=== PATIENT | female | born 1995 | race Caucasian/White ===

== ENCOUNTER → 2018-06-13 | Day surgery (SDC) | payer OTHER ==
[~2018-06-13] MED LIST: FENTANYL CITRATE/PF 100MCG/2 ML INJ ONE; METOCLOPRAMIDE HCL 10 MG/2ML VIAL ONE; MIDAZOLAM HCL 5 MG/ML VIAL ONE; PRILOSEC OTC20 MG PO; PROPOFOL IV EMULSION 10 MG/ML 20 ML VIAL ONE
--- OUTSIDE RECORDS SUMMARY | 2018-06-13 12:04 | XMS REPORT ---
Author Author [facility] Address Unknown Phone Unavailable Care Team Providers Care Group Care Worker Name Role Phone Unavailable Unavailable Problems This patient has no known problems. Allergies, Adverse Reactions, Alerts This patient has no known allergies or adverse reactions. Medications This patient has no known medications.
[2018-06-13 15:25] VITALS: BP 93/57
--- NOTE | 2018-06-13 15:33 | Operative Report ---
DATE OF PROCEDURE: June 13, 2018 PROCEDURE PERFORMED: Esophagogastroduodenoscopy with biopsies. INDICATIONS FOR EGD: Heartburn, indigestion, nausea, and vomiting. MEDICATION: Patient was done under MAC. Please see anesthesiologist's note. PROCEDURE: With the patient in the left lateral decubitus position, the flexible fiberoptic Olympus gastroscope was introduced into the esophagus under direct visualization without any difficulty. There was some patchy erythema noted in the distal esophagus. The scope was then advanced with ease into the stomach traversing a small sliding hiatal hernia. Mucosa overlying the antrum and the body revealed some patchy erythema and low-grade edema, and biopsies were obtained and sent to stain for H. pylori. The pylorus was of normal contour and shape. It was intubated with ease. The scope was advanced all the way to the 2nd portion of the duodenum. The scope was then withdrawn slowly. Mucosa overlying the proximal 2nd portion and the duodenal bulb grossly appeared to be within normal limits. Biopsies were obtained from the proximal 2nd portion to rule out sprue. The scope was then withdrawn back into the stomach and retroflexed. The mucosa overlying the fundus and the cardia appeared to be within normal limits. The scope was then straightened out. The stomach was decompressed. The scope was subsequently withdrawn. Patient tolerated the procedure well. IMPRESSION 1. Distal esophagitis, mild. 2. Small sliding hiatal hernia. 3. Gastritis, biopsied. Biopsies sent to stain for Helicobacter pylori. 4. Rule out sprue. PLAN: Follow up histology. Initiate Protonix 40 mg 1 p.o. q.a.m. a.c. Job#: [id number] [place]
== END | disposition home or self-care (01) ==
LOC: OR 12:02 → EDSEX 12:02
PROVIDERS: ATTEND Internal Medicine Gastroenterology
DX: K29.50 Unspecified chronic gastritis without bleeding (principal); K21.0 Gastro-esophageal reflux disease with esophagitis; K44.9 Diaphragmatic hernia without obstruction or gangrene; R12 Heartburn; R14.2 Eructation; F41.9 Anxiety disorder, unspecified
CPT/HCPCS: 43239; 81025; J2250; J2704; J2765

== ENCOUNTER → 2018-08-04 | Day surgery (SDC) | payer OTHER ==
[~2018-08-04] MED LIST changes: +HYOSCYAMINE SULFATE 0.5 MG/ML INJ ONE; -METOCLOPRAMIDE HCL 10 MG/2ML VIAL ONE; +MIDAZOLAM HCL 2 MG/2 ML VIAL ONE; -MIDAZOLAM HCL 5 MG/ML VIAL ONE; -PROPOFOL IV EMULSION 10 MG/ML 20 ML VIAL ONE; +PROPOFOL IV EMULSION 10 MG/ML 50 ML VIAL ONE; +ZYRTEC10 MG PO
--- OUTSIDE RECORDS SUMMARY | 2018-08-04 12:02 | XMS REPORT | Continuity of Care Document ---
Author Author [facility] Address Unknown Phone Unavailable Problems Problem Status Onset Date Classification Date Reported Comments Source Acute urinary tract infection 07/09/2018 Diagnosis 07/09/2018 [facility] Medications Medication Details Route Status Patient Instructions Ordering Provider Order Date Source NITROFURANTOIN, MACROCRYSTALS 25 MG / Nitrofurantoin, Monohydrate 75 MG Oral Capsule [Macrobid] Macrobid 100 mg capsule Take 1 capsule every 12 hours by oral route as directed for 5 days. Active [facility] Ondansetron 4 MG Disintegrating Oral Tablet ondansetron 4 mg disintegrating tablet Active [facility] pantoprazole 40 MG Delayed Release Oral Tablet pantoprazole 40 mg tablet,delayed release Active [facility] Prilosec Prilosec Active [facility] Hydrocortisone 25 MG/ML Topical Cream [Proctozone HC] Proctozone- HC 2.5 % topical cream perineal applicator Active [facility] Triamcinolone Acetonide 0.25 MG/ML Topical Cream triamcinolone acetonide 0.025 % topical cream Active [facility] Allergies, Adverse Reactions, Alerts Substance Category Reaction Severity Reaction type Status Date Reported Comments Source Immunizations Immunization Date Given Site Status Last Updated Comments Source Results Order Name Results Value Reference Range Date Interpretation Comments Source Urinalysis macro (dipstick) panel - Urine COLOR : Yellow 07/09/2018 [facility] Urinalysis macro (dipstick) panel - Urine CLARITY : Cloudy 07/09/2018 [facility] Urinalysis macro (dipstick) panel - Urine LEUKOCYTES : Moderate 07/09/2018 [facility] Urinalysis macro (dipstick) panel - Urine NITRITES : Negative 07/09/2018 [facility] Urinalysis macro (dipstick) panel - Urine UROBILINOGEN : Normal 07/09/2018 [facility] Urinalysis macro (dipstick) panel - Urine PROTEIN : Trace 07/09/2018 [facility] Urinalysis macro (dipstick) panel - Urine pH : 5.5 07/09/2018 [facility] Urinalysis macro (dipstick) panel - Urine BLOOD : Large 07/09/2018 [facility] Urinalysis macro (dipstick) panel - Urine SPECIFIC GRAVITY : 1.000 07/09/2018 [facility] Urinalysis macro (dipstick) panel - Urine KETONES : Negative 07/09/2018 [facility] Urinalysis macro (dipstick) panel - Urine BILIRUBIN : Negative 07/09/2018 [facility] Urinalysis macro (dipstick) panel - Urine GLUCOSE Negative 07/09/2018 [facility] Vital Signs Vital Sign Value Date Comments Source Diastolic (mm Hg) 62 07/08/2018 [facility] Height 65 07/08/2018 [facility] Systolic (mm Hg) 100 07/08/2018 [facility] Weight 126 07/08/2018 [facility] Encounters Location Location Details Encounter Type Encounter Number Reason For Visit Attending Provider ADM Date DC Date Status Source [place] - [id number] [place] Mary Kate Ortiz, [employer]: [address] [place] [address], Ph. [phone] [id number] Mary Kate Ortiz 07/08/2018 [facility] Outpatient [id number] YULIANA LAMB 07/27/2018 Active [facility] Procedures Procedure Code Date Perfomer Comments Source
--- OUTSIDE RECORDS SUMMARY | 2018-08-04 12:02 | XMS REPORT | Encounter Summary ---
Author Organization Unknown Address [address] [place] [address] Phone [phone] Reason for Visit Medical Complaint Instructions 1. Acute urinary tract infection urinalysis, dipstick culture, urine Macrobid 100 mg capsule urinary tract infection in women: care instructions Discussion Note Pt. is NAD. Take medications as prescribed; f/u with PCP within 2-3 days should symptoms worsen as discussed. ER precautions and Care instructions given. Verbalized all instructions. No further questions upon d/c. Plan of Care Patient Instructions Take your antibiotics as directed. Do not stop taking them just because you feel better. You need to take the full course of antibiotics. Drink extra water and other fluids for the next day or two. This may help wash out the bacteria that are causing the infection. Avoid drinks that are carbonated or have caffeine. They can irritate the bladder. Urinate often. Try to empty your bladder each time. To relieve pain, take a hot bath or lay a heating pad set on low over your lower belly or genital area. Never go to sleep with a heating pad in place. To Prevent UTI's in the future, jim sure to: Drink plenty of water each day. This helps you urinate often, which clears bacteria from your system. Consider adding cranberry juice to your diet. Urinate when you need to. Urinate right after you have sex. Change sanitary pads often. Avoid douches, bubble baths, feminine hygiene sprays, and other feminine hygiene products that have deodorants. After going to the bathroom, wipe from front to back. Reminders Provider Appointments None recorded. Lab Urinalysis, Dipstick 07/08/2018 [facility] Culture, Urine 07/08/2018 [facility] Referral None recorded. Procedures None recorded. Surgeries None recorded. Imaging None recorded. Medications Name Start Date Macrobid 100 mg capsule Take 1 capsule every 12 hours by oral route as directed for 5 days. ondansetron 4 mg disintegrating tablet pantoprazole 40 mg tablet,delayed release Prilosec Proctozone-HC 2.5 % topical cream perineal applicator triamcinolone acetonide 0.025 % topical cream Medications Administered None recorded. Vitals Height Weight BMI Blood Pressure 5 ft 5 in 126 lbs 21 kg/m2 100/62 mm[Hg] Lab Results Date Name Specimen Result Interpretation Description Value Range Status Address 07/08/2018 Urinalysis, Dipstick Color : Yellow [facility]: [address] [place] [address] Clarity : Cloudy [facility]: [address] [place] [address] Leukocytes : Moderate [facility]: [address] [place] [address] Nitrites : Negative [facility]: [address] [place] [address] Urobilinogen : Normal [facility]: [address] [place] [address] Protein : Trace [facility]: [address] [place] [address] Ph : 5.5 [facility]: [address] [place] [address] Blood : Large [facility]: [address] [place] [address] Specific [place] : 1.000 [facility]: [address] [place] [address] Ketones : Negative [facility]: [address] [place] [address] Bilirubin : Negative [facility]: [address] [place] [address] Glucose Negative [facility]: [address] [place] [address] Allergies Code Code System Name Reaction Severity Status Onset NKDA Problems No Known Problems Procedures None recorded. Vaccine List None recorded. Social History Smoking Status Never Smoker Past Encounters 07/08/2018 Acute Urinary Tract Infection [facility]: [address] [place] [address], Ph. [phone] History of Present Illness [id number] Reported By: Patient HPI: Location: urethra. Quality: burning. Severity: worsening, mild. Duration: started 1 day ago, constant. Onset/Timing: gradual. Context: no known exposure to STD, no prior history of STDs, sexually active, history of urine cultures/antibiotic treatment, wipes anterior to posterior. Modifying factors ; Has not tried anything OTC. Associated Symptoms: no fever/chills, no flank pain, no jaundice, no blood in the urine, no pain during urination, no vaginal discharge, no blisters on genitals, no rash on genitals, no muscle aches, no headache, burning sensation during urination, urgency, urinary frequency; abdominal cramping Notes: No other symptoms reported Review of Systems:ROS as noted in the HPI Review of Systems Basic Reported By: Patient Physical Exam Adult Basic, Adult Female Complete, 14-21 Yr Females Reported By: Patient Constitutional: General Appearance: healthy-appearing, well-nourished, well-developed. Level of Distress: NAD. Ambulation: ambulating normally Psychiatric: Mental Status: active and alert. Orientation: to time, to place, to person Lungs: Respiratory effort: no dyspnea, no tachypnea, no use of accessory muscles, no intercostal retractions. Auscultation: breath sounds normal Cardiovascular: Heart Auscultation: RRR, no murmurs Neurologic: Gait and Station: normal gait, normal station Skin: Inspection and palpation: no rash, no lesions, no ulcer, no abnormal nevi, no induration, no nodules, good turgor, no jaundice; On visible skin. Nails: normal Abdomen: Bowel Sounds: normal. Inspection and Palpation: soft, non-distended, no tenderness, no guarding, no rebound tenderness, no masses, no CVA tenderness. Liver: non-tender, no hepatomegaly. Spleen: non-tender, no splenomegaly. Hernia: none palpable
[2018-08-04 16:25] VITALS: BP 114/60
[2018-08-04 17:31] LABS: WBC,FECAL (FECAL LACTOFERRIN) POSITIVE (NEGATIVE)
--- NOTE | 2018-08-05 04:28 | Operative Report ---
DATE OF PROCEDURE: 08/04/2018 SURGEON: Avi Stephenson MD PROCEDURES: Colonoscopy with biopsies. INDICATIONS FOR EGD: Crampy lower abdominal pain and diarrhea. MEDICATION: The patient was done under MAC, please see anesthesiologist's note. PROCEDURE IN DETAIL: With the patient in the left lateral decubitus position, a flexible fiberoptic Olympus colonoscope was inserted into the rectum with ease and advanced all the way to the cecum. Mucosa overlying the cecum appeared to be within normal limits. The ileocecal valve was intubated and the scope was advanced into the terminal ileum. Biopsies were obtained. The scope was then withdrawn back onto the colon. It was then withdrawn slowly. Mucosa overlying the ascending and then transverse grossly appeared to be within normal limits. There were some patchy areas of erythema and low-grade edema noted in the left colon as well as the rectum, and multiple random biopsies were obtained. The scope was then retroflexed into the distal rectum and the area around the dentate line appeared to be within normal limits. The scope was then straightened out, it was subsequently withdrawn after securing an adequate stool specimen that was sent for the appropriate stool studies. The patient tolerated the procedure well. IMPRESSION: 1. Mild patchy left-sided colitis. 2. Proctitis, mild. PLAN: Followup histology. Followup stool studies. Initiate Bentyl 10 mg one p.o. t.i.d. Avi Stephenson MD [facility] [place][id number]
[2018-08-05 14:56] LABS: C DIFFICILE TOXIN A&B AMP PROB NEGATIVE (NEGATIVE)
== END | disposition home or self-care (01) ==
LOC: OR 11:59
PROVIDERS: ATTEND Internal Medicine Gastroenterology
DX: K51.50 Left sided colitis without complications (principal); K62.89 Other specified diseases of anus and rectum; K44.9 Diaphragmatic hernia without obstruction or gangrene; K21.0 Gastro-esophageal reflux disease with esophagitis; R42 Dizziness and giddiness; F41.9 Anxiety disorder, unspecified; Z88.1 Allergy status to other antibiotic agents; Z88.8 Allergy status to other drugs, medicaments and biological substances
CPT/HCPCS: 45380; 81025; 83630; 83993; 87045; 87177; 87328; 87493; J1980; J2250; J2704; 45378